=== PATIENT | female | born 2000 | race Caucasian/White ===

== ENCOUNTER 2022-12-22 11:30 | Emergency (ER) | payer OTHER, SELFPAY ==
--- NOTE | ~2022-12-22 | XR_ITS ---
LUMBAR SPINE INDICATION: Low back pain. TECHNIQUE: 3 views lumbar spine COMPARISON: None FINDINGS: No fracture, subluxation or dislocation. Mild dextrocurvature of the lumbar spine. No evide nce for spondylolysis or spondylolisthesis. Vertebral bodies and disk spaces are preserved. IMPRESSION: 1: No significant abnormality of the lumbar spine identified. Reviewed, dictated and finalized at location L.
[2022-12-22 11:41] VITALS: BP 129/74; PULSE 105; RESP 16; TEMP 36.9; O2SAT 100
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
[2022-12-22] MEDS: KETOROLAC (*BKC) 60 MG/2 ML VIAL IM (14:11)
[2022-12-22 14:14] VITALS: BP 119/74; PULSE 91; RESP 18; O2SAT 100
== END 2022-12-22 14:30 | disposition home or self-care (01) ==
PROVIDERS: Emergency Provider Emergency Medicine; PCP Family Medicine
DX: S16.1XXA Strain of muscle, fascia and tendon at neck level, initial encounter (principal); S39.012A Strain of muscle, fascia and tendon of lower back, initial encounter; V43.54XA Car driver injured in collision with van in traffic accident, initial encounter
CPT/HCPCS: 72100; 96372; 99283; J1885